=== PATIENT | female | born 1990 | race Two or more races ===

== ENCOUNTER 2022-07-02 15:20 | Emergency (ER) | payer OTHER, MEDICAID ==
[~2022-07-02] VITALS: Ht 160 cm; Wt 47.2 kg
[2022-07-02] MEDS ORDERED: GASTROGRAFIN 30 ML SOL ONE (16:40)
[2022-07-03 08:23] VITALS: BP 101/64
== END 2022-07-03 08:25 | disposition home or self-care (01) ==
LOC: EDBD 15:20 → ER 15:20
DX: Z43.1 Encounter for attention to gastrostomy (principal); Z98.890 Other specified postprocedural states
CPT/HCPCS: 74021; 99285; Q9963